=== PATIENT | male | born 1955 | race Caucasian/White ===

== ENCOUNTER → 2016-07-01 | Outpatient (CLI) | payer OTHER ==
[~2016-07-01] MED LIST: ACET-1256 PO; ASPI325T39 PO; ASPI81TA28 PO; CARV6.25 PO; DICL-201 PO; DLD2 PO; FLM4 PO; HYDC25 PO; MAGNESIUM HYDROXIDE PO; MILK OF MAGNESIA PO; NAPR1TAB9 PO; NTRGSL/4 UT; POTAPOW29 PO; POTASSIUM PO; SENNTAB23 PO; SERT25TA PO; SERT50TA PO; TRAM-10 PO
--- NOTE | 2016-07-01 13:44 | DIAGNOSTIC IMAGING REPORT ---
RIGHT SHOULDER MRI HISTORY: Right shoulder pain. TECHNIQUE: Multiplanar multisequence MRI of the right shoulder was performed without contrast. COMPARISON STUDY: None. FINDINGS: Motion artifact throughout the scan resulting in suboptimal evaluation. AC joint: Moderate to severe AC joint arthropathy. This is demonstrated by joint space narrowing and large marginal osteophytes. Is also trace fluid within the joint space likely result of the fluid within the subacromial/subdeltoid bursa. Rotator cuff: The subscapularis and teres minor tendons appear to be grossly intact. There are full-thickness tears involving the entire supraspinous and infraspinatus tendons which demonstrate retraction. The supraspinatus is retracted up to the level of the acromioclavicular joint. The infraspinatus is retracted up to 2.7 cm. The full-thickness tears result in fluid within the subacromial/subdeltoid bursa and mild superior subluxation of the humeral head in relation to the glenoid. There is also an interstitial component of the tear extending into the musculotendinous junction of the infraspinatus. There is edema within the infraspinatus muscle. There is severe fatty atrophy of supraspinatus muscle and moderate fatty atrophy of the infraspinatus muscle. Labrum: Diffusely abnormal signal and configuration throughout the labrum consistent with circumferential tear/maceration. Biceps tendon: Completely torn and retracted into the proximal bicipital groove. Bones: No acute fracture dislocation. Extensive subchondral cystic change and edema at the glenohumeral joint. There are also large osteophytes at the glenohumeral and acromioclavicular joints. Cartilage: Full-thickness cartilage loss at the glenohumeral joint consistent with severe osteoarthritis. Miscellaneous: Small joint effusion. There are few scattered small intra-articular bodies. IMPRESSION: 1. Complete full-thickness tears of the supraspinatus and infraspinatus tendons as described above with associated retraction and muscular atrophy. 2. Circumferential tear/maceration of the labrum. 3. The proximal long head of the biceps tendon is completely torn and retracted into the proximal bicipital groove. 4. Severe osteoarthritis at the glenohumeral and acromioclavicular joints. Electronically signed by: Noah Ochoa M.D. 07/01/2016 1:42 PM Dictated Date/Time: 07/01/2016 1:32 PM
== END | disposition home or self-care (01) ==
LOC: C.MRIBC 11:33
PROVIDERS: ATTEND Orthopaedic Surgery
DX: M75.121 Complete rotator cuff tear or rupture of right shoulder, not specified as traumatic (principal); M19.011 Primary osteoarthritis, right shoulder

== ENCOUNTER → 2016-07-27 | Outpatient (CLI) | payer OTHER | END | disposition home or self-care (01) | LOC: C.CTS 13:06 | PROVIDERS: ATTEND Orthopaedic Surgery | DX: M75.101 Unspecified rotator cuff tear or rupture of right shoulder, not specified as traumatic (principal); M19.011 Primary osteoarthritis, right shoulder ==

== ENCOUNTER 2016-08-28 05:24 | Inpatient (IN) | payer OTHER ==
[2016-07-27 14:12] VITALS: BMI 36.0
--- NOTE | 2016-07-27 14:53 | PAT Medication Instructions ---
Service Date Jul 27, 2016. Current Home Medication List Acetaminophen (Tylenol), 1,000 MG PO QAM Aspirin (Aspirin Ec), 325 MG PO QAM Carvedilol (Coreg), 6.25 MG PO BID Diclofenac (Voltaren), 75 MG PO BID Hydrochlorothiazide (Hctz *), 25 MG PO QPM Nitroglycerin (Nitrostat), 0.4 MG UT PRN Sertraline (Zoloft), 50 MG PO QPM Sertraline (Zoloft), 25 MG PO QAM Tamsulosin HCl (Tamsulosin HCl), 0.4 MG PO HS Tramadol (Ultram), 50-100 MG PO Q4HR [Milk Of Magnesia], 2 TAB PO QPM [Potassium], 2 TAB PO BID Medication Instructions For Your Scheduled Surgery - Continue as directed: Nitroglycerin (Nitrostat), 0.4 MG UT PRN - Hold the following medications 7 days prior to surgery per surgeon's instructions: Diclofenac (Voltaren), 75 MG PO BID - Hold the following medications the morning of surgery: [Potassium], 2 TAB PO BID - Take the following medications the morning of surgery with a sip of water OTHERWISE NOTHING TO EAT OR DRINK AFTER MIDNIGHT: Carvedilol (Coreg), 6.25 MG PO BID Aspirin (Aspirin Ec), 325 MG PO QAM (okay to continue per surgeon) Acetaminophen (Tylenol), 1,000 MG PO QAM ( may take if needed up to 4 hours prior to surgery) Tramadol (Ultram), 50-100 MG PO Q4HR Sertraline (Zoloft), 25 MG PO QAM - Take the following medications as scheduled the night before surgery: Carvedilol (Coreg), 6.25 MG PO BID Acetaminophen (Tylenol), 1,000 MG PO QAM Hydrochlorothiazide (Hctz *), 25 MG PO QPM Tramadol (Ultram), 50-100 MG PO Q4HR ( may take if needed up to 4 hours prior to surgery) [Potassium], 2 TAB PO BID Sertraline (Zoloft), 50 MG PO QPM Tamsulosin HCl (Tamsulosin HCl), 0.4 MG PO HS [Milk Of Magnesia], 2 TAB PO QPM If you have any questions please call us at [phone] or [phone] or [phone]
--- NOTE | 2016-07-27 15:14 | DIAGNOSTIC IMAGING REPORT ---
CHEST 2 VIEWS ROUTINE CLINICAL HISTORY: Preoperative chest COMPARISON STUDY: 10/17/2014 FINDINGS: The heart remains mildly enlarged. There is no failure. There is no focal pulmonary consolidation. There are no pleural effusions. There are postsurgical changes of a left humeral arthroplasty. There are surgical clips in the left axillary region. There are surgical clips within the left upper quadrant.[ There are minor right basilar atelectatic changes. There is stable aortic tortuosity/ectasia. IMPRESSION: Stable mild cardiomegaly. No active disease in the chest. Electronically signed by: Nilo Crowe M.D. 07/27/2016 3:13 PM Dictated Date/Time: 07/27/2016 3:12 PM
[2016-07-27 15:24] LABS: URINE APPEARANCE CLEAR (CLEAR); URINE BILIRUBIN NEG (NEG); URINE COLOR YELLOW; URINE NITRITE NEG (NEG); URINE PH 7.5 (4.5-7.5); URINE SPECIFIC GRAVITY 1.021 (1.000-1.030); UROBILINOGEN NEG (NEG)
[2016-07-27 15:26] LABS: MANUAL MICROSCOPIC REQUIRED? NO; REVIEW REQ? NO
[2016-07-27 15:28] LABS: PARTIAL THROMBOPLASTIN RATIO 1.1; PROTHROMBIN TIME (PATIENT) 10.2 SECONDS (9.0-12.0)
[2016-07-27 15:33] LABS: BUN/CREATININE RATIO 23.6 (10-20); CALCIUM 8.9 mg/dl (8.5-10.1); CREATININE 0.69 mg/dl (0.60-1.40); POTASSIUM 3.9 mmol/L (3.5-5.1)
[2016-07-27 19:27] LABS: BASO % 0.3 %; BASO ABS # 0.02 K/uL (0-0.2); COMPLETE YES; EOS % 2.5 %; HEMATOCRIT 42.4 % (42-52); IG% 0.4 %; LYMPH % 23.5 %; LYMPH ABS # 1.79 K/uL (1.2-3.4); MEAN CELL VOLUME 94.6 fL (80-100); MEAN CORPUSCULAR HEMOGLOBIN 31.5 pg (25-34); MEAN CORPUSCULAR HGB CONC 33.3 g/dl (32-36); MONO % 10.7 %; NEUT % 62.6 %; PLATELET COUNT 375 K/uL (130-400); RED BLOOD COUNT 4.48 M/uL (4.7-6.1); WHITE BLOOD COUNT 7.63 K/uL (4.8-10.8)
--- NOTE | 2016-08-27 10:40 | HISTORY & PHYSICAL EXAMINATION ---
DATE OF ADMISSION: 08/28/2016 CHIEF COMPLAINT: Rotator cuff arthropathy of the right shoulder. HISTORY OF PRESENT ILLNESS: Live is a pleasant 61-year-old male who I did a left total shoulder on about 2 years ago. He has done fairly well with that. He also has documented right shoulder arthritis. Unfortunately, while at work on June 03, he was lifting a heavy object and felt a sudden snap and pain in his shoulder. He got an MRI which actually showed a chronic retracted rotator cuff tear. Given the level of pain and loss of function he has in his shoulder, he has elected to proceed with reverse right shoulder arthroplasty. PAST MEDICAL HISTORY: Significant for hypertension, hyperlipidemia, sleep apnea with a BiPAP machine, angioplasty with a stent, osteoarthritis, kidney stones, enlarged prostate and melanoma. PAST SURGICAL HISTORY: Significant for left total shoulder arthroplasty 2 years ago, knee surgery, hip surgery, heart stents x3, cholecystectomy, melanoma and Faye fundoplication. ALLERGIES: PERCOCET, VICODIN, AND IV CONTRAST. MEDICATIONS: Include tramadol 50 mg as needed for pain, Coreg 6.25 mg twice a day, HCTZ 25 mg daily, aspirin 81 mg daily, Zoloft 50 mg daily, Tylenol 500 mg as needed for pain, tamsulosin at bedtime and potassium 99 mg 4 times a day. FAMILY HISTORY: Noncontributory. SOCIAL HISTORY: He denies any tobacco, alcohol or IV drug use. REVIEW OF SYSTEMS: He complains of right shoulder pain. All other pertinent review of systems are negative. PHYSICAL EXAMINATION: GENERAL: He is awake, alert and oriented x3. He is in no apparent distress. He is very pleasant. HEENT: Pupils equal, round and reactive to light. Extraocular motion intact. Oral mucosa is pink and moist. HEART: Regular rate per radial pulse. LUNGS: Anayeli symmetrically bilaterally with no audible breath sounds. ABDOMEN: Soft, nontender, nondistended. MUSCULOSKELETAL: On physical examination of the right shoulder, he has significant decrease in range of motion with about 30 degrees of forward elevation and 30 degrees of abduction. Passively, I have trouble even getting him through further range of motion. All of his pain is located anteriorly and down the length of the biceps tendon. IMAGING DATA: X-rays of the shoulder show advanced osteoarthritis with a type B2 glenoid. There is slight progression from the last x-rays. MRI of the shoulder shows advanced glenohumeral arthritis with a large chronic retracted rotator cuff tear. IMPRESSION: Rotator cuff arthropathy of the right shoulder. PLAN: We will proceed with a Biomet comprehensive reverse right total shoulder arthroplasty. Postoperatively, he will be placed in a sling and kept overnight for postoperative medical management.
[2016-08-28] VITALS (10 sets, daily range): BP systolic 94–144; BP diastolic 64–99; PULSE 83–105; TEMP 36.4–36.7; O2SAT 91–95; Ht 180.3 cm; Wt 119.6 kg
[~2016-08-28] VITALS: Ht 180.3 cm; Wt 119.6 kg
[~2016-08-28 05:24] MED LIST changes: -ASPI81TA28 PO; -DLD2 PO; -MAGNESIUM HYDROXIDE PO; -NAPR1TAB9 PO; -POTAPOW29 PO; -SENNTAB23 PO
[2016-08-28] MEDS ORDERED: ACETAMINOPHEN 500 MG TAB PO SCH (06:00)
[2016-08-28] MEDS ORDERED: LACTATED RINGER'S 1000ML IV SCH ×2 (06:00→15:45)
[2016-08-28] MEDS ORDERED: FAMOTIDINE 20 MG TAB PO SCH (06:00)
[2016-08-28] MEDS ORDERED: ROPIVACAINE 5MG/ML 30 ML 150 MG, BUPIVACAINE/EPINEPHR 0.5% MPF 30 ML, KETOROLAC TROMETH... INFIL SCH ×7 (06:00)
[2016-08-28] MEDS ORDERED: GABAPENTIN 300 MG CAP PO SCH (06:00)
[2016-08-28] MEDS ORDERED: CEFAZOLIN 2000 MG/60 ML D5W 60 ML IV SCH (06:00)
[2016-08-28] MEDS ORDERED: BUPIVACAINE/EPINEPHRINE 0.25% 1:200,000 30 ML VIAL ONE (06:22)
[2016-08-28] MEDS ORDERED: DEXAMETHASONE SOD INJ 4 MG/ML VIAL ONE ×2 (06:22→07:47)
--- NOTE | 2016-08-28 06:30 | History & Physical Bridge Note ---
H&P Re-Evaluation Bridge Note: I have examined the patient, reviewed the History & Physical and in the interval since the performance of the History & Physical I have noted the following changes of clinical significance: No changes noted
[2016-08-28] MEDS ORDERED: BACITRACIN 50000 UNIT VIAL ONE (06:45)
[2016-08-28] MEDS ORDERED: BUPIVACAINE/EPINEPHRINE 0.5% MPF 1:200,000 30 ML VIAL ONE (06:45)
[2016-08-28] MEDS ORDERED: GLYCOPYRROLATE INJ 0.2 MG/ML VIAL ONE (06:46)
[2016-08-28] MEDS ORDERED: FENTANYL CITRATE INJ 50 MCG/1 ML 2 ML VIAL ONE (06:46)
[2016-08-28] MEDS ORDERED: ROCURONIUM BROMIDE 10 MG/ML 5 ML VIAL ONE (06:46)
[2016-08-28] MEDS ORDERED: LIDOCAINE HCL 2% 2 ML VIAL (20MG/ML) ONE (06:46)
[2016-08-28] MEDS ORDERED: PROPOFOL IV EMULSION 10 MG/ML 20 ML VIAL IV ONE (06:46)
[2016-08-28] MEDS ORDERED: MIDAZOLAM HCL 1 MG/ML 2ML VIAL ONE (06:46)
[2016-08-28] MEDS ORDERED: NEOSTIGMINE METHYLSULFATE 5 MG/5 ML SYR ONE (06:46)
[2016-08-28] MEDS ORDERED: ONDANSETRON INJ 2 MG/ML 2 ML VIAL ONE (06:46)
[2016-08-28] MEDS ORDERED: ORTHO JOINT ANESTHETIC ONE (07:03)
[2016-08-28] MEDS ORDERED: ONDANSETRON INJ 2 MG/ML 2 ML VIAL IV PRN ×2 (07:45→09:30)
[2016-08-28] MEDS ORDERED: FENTANYL CITRATE INJ 50 MCG/1 ML 2 ML VIAL IV PRN (07:45)
[2016-08-28] MEDS ORDERED: PROMETHAZINE HCL INJ 6.25 MG in SODIUM CHLORIDE 0.9% 50ML 50 ML IV PRN (07:45)
[2016-08-28] MEDS ORDERED: ATROPINE SULFATE 0.1 MG/ML 5ML SYR IV PRN (07:45)
[2016-08-28] MEDS ORDERED: EpHEDrine SULFATE INJ 50 MG/ML AMP IV PRN (07:45)
[2016-08-28] MEDS ORDERED: EpHEDrine SULFATE 50MG/5ML SYR ONE (08:27)
[2016-08-28] MEDS ORDERED: PHENYLEPHRINE 100MCG/ML 5ML SYR ONE (08:27)
[2016-08-28] MEDS ORDERED: SUCCINYLCHOLINE 100MG/5ML SYR IV ONE (08:28)
--- NOTE | 2016-08-28 09:22 | [facility] Post Operative Brief Note ---
Immediate Operative Summary Operative Date Aug 28, 2016. Pre-Operative Diagnosis Rotator Cuff Arthropathy of the Right Shoulder Post-Operative Diagnosis Rotator Cuff Arthropathy of the Right Shoulder Procedure(s) Performed Right Reverse Total Shoulder Arthroplasty--Uncemented Surgeon Dr. Sim Contracting Support Specialist Surgeon(s) NÉSTOR Alejandro Estimated Blood Loss 350 ml Findings as above Specimens A. Portion of Right Humeral Head Complication(s) None Disposition Recovery Room / PACU
[2016-08-28] MEDS ORDERED: HYDROmorphone INJ 1 MG/ML SYR IV PRN (09:30)
[2016-08-28] MEDS ORDERED: NITROGLYCERIN 0.4 MG SL PER TAB CHARGE UT PRN (09:30)
[2016-08-28] MEDS ORDERED: METOCLOPRAMIDE HCL INJ 5 MG/ML 2 ML VIAL IV PRN (09:30)
[2016-08-28] MEDS ORDERED: BISACODYL 10 MG SUPP PR PRN (09:30)
[2016-08-28] MEDS ORDERED: NALOXONE HCL 0.4 MG/1 ML VIAL/CARP IV PRN (09:30)
[2016-08-28] MEDS ORDERED: MAGNESIUM HYDROXIDE SUSP 30 ML UDC PO PRN (09:30)
[2016-08-28] MEDS ORDERED: SOD PHOSPHATE/SOD BIPHOSPHATE ENEMA 132 ML BTL PR PRN (09:30)
[2016-08-28] MEDS ORDERED: HYDROmorphone HCL 2 MG TAB PO PRN (09:30)
--- NOTE | 2016-08-28 10:19 | DIAGNOSTIC IMAGING REPORT ---
RIGHT SHOULDER MIN 2 VIEWS ROUTINE CLINICAL HISTORY: Postoperative evaluation. COMPARISON: CT of the right shoulder July 27, 2016. FINDINGS: Alignment of the right shoulder arthroplasty is anatomic. There is no periprosthetic fracture or unexpected radiopaque foreign body. Surgical drain is in place. IMPRESSION: Expected findings following right shoulder arthroplasty. Electronically signed by: Vivek Layton M.D. 08/28/2016 10:18 AM Dictated Date/Time: 08/28/2016 10:16 AM
--- NOTE | 2016-08-28 10:59 | Anesthesiology Progress Note ---
Anesthesia Post Op Note Date & Time Aug 28, 2016 at 10:58 Vital Signs Pain Intensity: 0 Vital Signs Past 12 Hours Date Time Temp Pulse Resp B/P Pulse Ox O2 Delivery O2 Flow Rate FiO2 08/28/16 10:25 36.2 79 12 121/67 95 Nasal Cannula 4 08/28/16 10:15 65 13 121/73 94 Nasal Cannula 4 08/28/16 10:05 72 13 117/84 99 Mask 10 08/28/16 09:55 69 13 126/73 99 Mask 10 08/28/16 09:46 36.1 79 12 136/89 96 Mask 10 08/28/16 05:45 86 20 144/99 94 Room Air Notes Mental Status: alert / awake / arousable, participated in evaluation Pt Amnestic to Procedure: Yes Nausea / Vomiting: adequately controlled Pain: adequately controlled Airway Patency, RR, SpO2: stable & adequate BP & HR: stable & adequate Hydration State: stable & adequate Anesthetic Complications: no major complications apparent Block working well in pacu
--- NOTE | 2016-08-28 11:10 | OPERATIVE REPORT ---
DATE OF OPERATION: 08/28/2016 PREOPERATIVE DIAGNOSIS: Rotator cuff arthropathy of the right shoulder. POSTOPERATIVE DIAGNOSIS: Same. PROCEDURE: Reverse right total shoulder arthroplasty. SURGEON: Dr. Natan Sim. INVESTIGATIONS CHIEF: Kai Uriostegui PA-C, whose assistance was necessary for positioning the arm and helping with retraction. ANESTHESIA: General with a right interscalene nerve block. COMPLICATIONS: None. CONDITION: Stable to PACU. IMPLANTS USED: I used a Biomet comprehensive right reverse total shoulder arthroplasty with a size 16 mini stem, a 45-mm central screw, 3 peripheral locking screws, a 41-mm standard eccentric glenosphere, a standard humeral baseplate and a standard humeral bearing. No cement was used during the case. INDICATIONS: Live is a pleasant 61-year-old male who has been dealing with chronic right shoulder pain. He has had arthritis of his shoulder. He then injured his shoulder while working, sustained a large cuff tear and a traumatic biceps rupture. He elected to undergo a reverse right total shoulder arthroplasty. DESCRIPTION OF PROCEDURE: On 08/28/2016, he arrived at [facility] for the above procedure. He was seen in the preoperative holding area and the operative extremity was identified and signed. He was given a preoperative antibiotic and a right interscalene nerve block. He was taken back to the operating room, laid on the table in supine position and put under general anesthesia. He was then put into the beachchair position. The right shoulder was prepped and draped in sterile fashion. Time-out was done and the patient and operative extremity was properly identified. A deltopectoral incision was used. Dissection was taken down through the fascia and the anterior shoulder was exposed. The long head of the biceps tendon had already been traumatically tenotomized. The subscapularis was released from the lesser tuberosity and the humerus was exposed. There was a complete rupture of the supraspinatus and a half of the infraspinatus. Sequential reaming up to a size 16 reamer was done. Off the final reamer, a proximal humeral resection guide was placed and the proximal humerus was resected at 135 degrees of inclination and 20 degrees of retroversion. Osteophytes were then removed around the inferior humeral neck. The glenoid was then exposed. Time was spent doing a complete circumferential capsular and labral release. The Biomet signature guide was then snapped on to the anterior aspect of the glenoid. A guide pin was placed in the reverse shoulder arthroplasty hole. This set the baseplate at 10 degrees of inclination. The 25-mm mini base plate was then reamed. The mini base plate was then impacted into place. A 45-mm central screw was placed. I was able to get excellent purchase. Superior, inferior and anterior locking screws were then placed. A 41-mm eccentric glenosphere was then impacted into place. The proximal humerus was then exposed. Sequential broaching up to a size 16 broach was done. Off that broach, a standard humeral tray was placed. The shoulder was reduced, brought through a full range of motion and felt to be stable. The final size 16 pressfit mini stem was impacted into place and the humeral bearing was snapped onto the humeral baseplate and the ring lock mechanism was engaged. The humeral baseplate was then put onto the humeral stem and the shoulder was reduced, brought through a full range of motion and felt to be stable. The entire joint was then irrigated with 3 liters of normal saline solution with bacitracin. Surrounding soft tissues were injected with 100 mL of an orthopedic pain control cocktail. A final irrigation was done. The subscapularis was then tenodesed back to the lesser tuberosity with transosseous FiberWire sutures and [id number] sutures. A single lumen drain was placed. The skin was then closed with 2-0 Vicryl, a running 3-0 V-Loc suture and a Prineo dressing. He was then placed in a regular arm sling, extubated, transferred to a [facility] and taken to the postanesthesia care unit in stable condition. He tolerated the procedure well. I attest to the content of the Intraoperative Record and any orders documented therein. Any exceptio ns are noted below.
[2016-08-28] MEDS: D5W AND 1/2NSS + 20MEQ KCL 1,000 ML IV SCH ×2 (11:28→21:26)
[2016-08-28] MEDS: KETOROLAC TROMETHAMINE 30 MG/ML VIAL IV. SCH ×3 (11:31→23:59)
[2016-08-28] MEDS: ACETAMINOPHEN IV 1,000 MG in EMPTY BAG 0 ML IV SCH ×2 (13:17→21:27)
[2016-08-28] MEDS: TRAMADOL HCL 50 MG TAB PO SCH ×3 (13:17→23:58)
[2016-08-28] MEDS: CEFAZOLIN IV 2,000 MG in DEXTROSE 5% 50ML 50 ML IV SCH ×2 (14:17→22:29)
[2016-08-28] MEDS: DOCUSATE SODIUM 100 MG CAP PO SCH (20:41)
[2016-08-28] MEDS: CARVEDILOL 6.25 MG TAB PO SCH (20:42)
[2016-08-28] MEDS ORDERED: SERTRALINE HCL 50 MG TAB PO SCH (21:00)
[2016-08-28] MEDS ORDERED: HYDROCHLOROTHIAZIDE 25 MG TAB PO SCH (21:00)
[2016-08-28] MEDS ORDERED: TAMSULOSIN HCL 0.4 MG CAP PO SCH (21:00)
[2016-08-28] MEDS ORDERED: SENNA 8.6 MG TAB PO SCH (21:00)
[2016-08-29 03:45] VITALS: BP 129/92; PULSE 95; TEMP 36.5; O2SAT 92
[2016-08-29] MEDS: TRAMADOL HCL 50 MG TAB PO SCH (05:22)
[2016-08-29] MEDS: ACETAMINOPHEN IV 1,000 MG in EMPTY BAG 0 ML IV SCH (05:22)
[2016-08-29] MEDS: KETOROLAC TROMETHAMINE 30 MG/ML VIAL IV. SCH (05:22)
[2016-08-29 06:51] LABS: HEMATOCRIT 36.6 % (42-52); MEAN CELL VOLUME 93.4 fL (80-100); MEAN CORPUSCULAR HEMOGLOBIN 32.1 pg (25-34); MEAN CORPUSCULAR HGB CONC 34.4 g/dl (32-36); MEAN PLATELET VOLUME 10.4 fL (7.4-10.4); PLATELET COUNT 287 K/uL (130-400); RED BLOOD COUNT 3.92 M/uL (4.7-6.1); WHITE BLOOD COUNT 17.32 K/uL (4.8-10.8)
[2016-08-29 07:20] LABS: BUN/CREATININE RATIO 24.5 (10-20); CALCIUM 8.1 mg/dl (8.5-10.1); CREATININE 0.83 mg/dl (0.60-1.40); POTASSIUM 3.6 mmol/L (3.5-5.1)
[2016-08-29] MEDS: D5W AND 1/2NSS + 20MEQ KCL 1,000 ML IV SCH (07:28)
[2016-08-29 07:45] VITALS: BP 112/74; PULSE 91; TEMP 36.5; O2SAT 94
[2016-08-29] MEDS ORDERED: HYDR2TAB3 PO (08:51)
--- NOTE | 2016-08-29 08:52 | Discharge Instructions ---
Discharge Instructions Date of Service Aug 29, 2016. Admission Reason for Admission: Right Shoulder Full Thickness Rtc Tear, Osteoarthr Discharge Discharge Diagnosis / Problem: Right Reverse Total Shoulder Discharge Goals Goal(s): Decrease discomfort, Improve function Activity Recommendations Activity Limitations: as noted below Shower/Bathe: may shower/bathe in 3 days . Instructions / Follow-Up Instructions / Follow-Up Activity and Therapy Recommendations: * Wear your sling for 3 weeks, unless otherwise instructed. You may remove your sling to shower and to dress, but otherwise, you should be in your sling at all times, including while sleeping * The shoulder replacement is very stable and you can use your hand while in the sling * Physical Therapy should start about 3-5 days from your day of surgery. Therapy will last about 8-12 weeks * You were shown a series of exercises in the hospital. Do these exercises daily including the exercises you were shown in physical therapy. Medications: * Narcotic You will likely be sent home from the hospital with a prescription for the narcotic pain medication that worked best throughout your stay. * Other medications may be prescribed for specific circumstances. If you have any questions, please call the office at . * Resume previous home medications unless otherwise instructed Dressing Care: You will likely have a Prineo dressing covering your incision. This looks like a glued on clear mesh dressing. Do not remove this dressing until you follow- up in my office in 2-3 weeks. Its pretty hard to peel it off. You may leave the Prineo dressing uncovered or cover it if it is draining a little bit. No further dressing care is required Showering: You may shower 3 days from the day of surgery. Leave the Prineo dressing intact and let the soapy shower water run over it. Do not scrub or soak the dressing or the incision. Things To Watch For: * Drainage from the incision site that occurs more than one week after your surgery. * Increased redness at the incision site. * Fever above 102 degrees Fahrenheit. * Unusual chest pain or shortness of breath. * Call [facility] at with any of the above problems Follow-Up Visit: Follow-up with Dr. Sim 2-3 weeks after your day of surgery. An appointment was probably scheduled when you signed-up for surgery in the office. If you have any questions call Office Instructions: More detailed instructions as well as Frequently Asked Questions were provided in a folder by our office when you signed-up for surgery. Please review these instructions when you get home. If you have any further questions or concerns, please feel free to call the office at [phone] Current Hospital Diet Patient's current hospital diet: Regular Diet Discharge Diet Recommended Diet: Regular Diet Procedures Procedures Performed: Right Reverse Total Shoulder Arthroplasty--Uncemented Pending Studies Studies pending at discharge: no Medical Emergencies . Who to Call and When: Medical Emergencies: If at any time you feel your situation is an emergency, please call 911 immediately. . Non-Emergent Contact Non-Emergency issues call your: Surgeon Call Non-Emergent contact if: wound has increased drainage, wound has increased redness . "Provider Documentation" section prepared by Natan Sim. VTE Core Measure Inpt VTE Proph given/why not?: Treatment not indicated
[2016-08-29] MEDS ORDERED: SERTRALINE HCL 50 MG TAB PO SCH (09:00)
[2016-08-29] MEDS ORDERED: ASPIRIN 325 MG ECTAB PO SCH (09:00)
[2016-08-29] MEDS ORDERED: PANTOprazole SOD 40 MG TAB PO SCH (09:00)
[2016-08-29] MEDS: CARVEDILOL 6.25 MG TAB PO SCH (09:04)
[2016-08-29] MEDS: DOCUSATE SODIUM 100 MG CAP PO SCH (09:04)
[2016-08-29 10:42] VITALS: BP 112/74; PULSE 91; TEMP 36.5; O2SAT 94
--- NOTE | 2016-08-29 18:01 | PROGRESS NOTE ---
DATE: 08/29/2016 CHIEF COMPLAINT: Status post right reverse total shoulder arthroplasty postop day #1. PROGRESS: Live was seen and examined at bedside today. Overall, he is doing very well. He was sitting up for breakfast. He said he had no pain in his right shoulder. He had no acute events overnight. He is happy with his progress and has no complaints. PHYSICAL EXAMINATION: RIGHT SHOULDER: The dressing is clean and dry and the drain is to suction. He is wearing his sling as instructed. His radial, median and ulnar nerves were checked and intact. His axillary nerve was not checked yet. LABORATORY DATA: He has an H\T\H today of 12.6 and 36.6. His glucose is 141. His vital signs are all stable and he is voiding on his own after the Dickson was removed. X-ray postop right shoulder showed the prosthesis to be in an anatomic alignment without any evidence of loosening or fracture. ASSESSMENT: Status post right reverse total shoulder arthroplasty postop day #1. PLAN: At this point, he is doing very well. He will be seen by physical therapy today to do hand, wrist and elbow exercises. The nursing staff will change the dressing and pull the drain and we will discharge him to home. BRADEN
--- NOTE | 2016-08-30 01:44 | DISCHARGE SUMMARY ---
DISCHARGE DIAGNOSIS: Rotator cuff arthropathy of the right shoulder. PROCEDURE: Right reverse total shoulder arthroplasty on 08/28/[address] Natan Sim. DISCHARGE INSTRUCTIONS: 1. Dilaudid 2 mg every four hours as needed for pain. 2. Tramadol 50 mg every four hours as needed for pain. 3. Tylenol 1000 mg daily. 4. Aspirin 325 mg daily. 5. Coreg 6.25 mg twice a day. 6. Voltaren 75 mg twice a day. 7. HCTZ 25 mg at night. 8. Nitroglycerin 0.4 mg as needed. 9. Zoloft 50 mg at night and 25 mg in the morning. 10. Tamsulosin 0.4 mg at night. 11. Right arm sling for three weeks. 12. Follow up with Dr. Sim in two weeks. 13. Call the office of Dr. Sim with any questions or concerns. HOSPITAL COURSE: Live is a 61-year-old male, who presented to my office with chronic shoulder pain. MRI and clinical examination were diagnostic for rotator cuff arthropathy of the right shoulder. After failing conservative treatment, he elected to undergo a reverse shoulder arthroplasty. On 08/28/2016, he arrived at [facility] and underwent a reverse right shoulder arthroplasty without complications. He had a general anesthetic and a right interscalene nerve block. Postoperatively, he was discharged to the general orthopedic floor. His hospital course was uneventful. On postop day #1, his H\T\H were stable at 12.6 and 36.6. He was not having any pain in his shoulder and the nursing staff changed the dressing and pulled the drain and he was subsequently discharged to home with the above instructions. BRADEN
[2017-05-03] MEDS ORDERED: HYDR25TA4 PO (09:00)
[2017-05-03] MEDS ORDERED: CRAN500C2 PO (09:00)
== END 2016-08-29 11:50 | disposition home or self-care (01) | DRG 483 ==
LOC: ENRESERVTM → ENRESERVDT → C.ACU 05:24 → C.3E 09:32
PROVIDERS: ADMIT Orthopaedic Surgery; ATTEND Orthopaedic Surgery
PROC: 0RRJ00Z Replacement of Right Shoulder Joint with Reverse Ball and Socket Synthetic Substitute, Open Approach (ICD-10-PCS; principal; 2016-08-28 07:00)
DX: M12.811 Other specific arthropathies, not elsewhere classified, right shoulder (principal); I10 Essential (primary) hypertension; E78.5 Hyperlipidemia, unspecified; G47.30 Sleep apnea, unspecified; Z95.5 Presence of coronary angioplasty implant and graft; N40.0 Benign prostatic hyperplasia without lower urinary tract symptoms; Z96.612 Presence of left artificial shoulder joint

== ENCOUNTER 2017-05-18 08:41 | Day surgery (SDC) | payer BC, OTHER ==
[2017-05-03 09:02] VITALS: BMI 37.0
--- NOTE | 2017-05-03 09:38 | PAT Medication Instructions ---
Service Date May 03, 2017. Current Home Medication List Acetaminophen (Tylenol), 500 MG PO PRN Aspirin (Aspirin Ec), 325 MG PO QAM Carvedilol (Coreg), 6.25 MG PO BID Cranberry (Vaccinium Macrocarp (Cranberry), 500 MG PO QAM Diclofenac (Voltaren), 75 MG PO BID Hydrochlorothiazide (Hctz), 25 MG PO QPM Nitroglycerin (Nitrostat), 0.4 MG UT PRN Sertraline (Zoloft), 50 MG PO QPM Tamsulosin HCl (Tamsulosin HCl), 0.4 MG PO HS Tramadol (Ultram), 50-100 MG PO Q4HR [Milk Of Magnesia], 2 TAB PO QPM [Potassium], 2 TAB PO BID Medication Instructions For Your Scheduled Surgery - Check with surgeon/gravel hauler for instructions: Aspirin (Aspirin Ec), 325 MG PO QAM - Check with surgeon for instructions: Diclofenac (Voltaren), 75 MG PO BID - Hold the following medications 2 weeks prior to surgery: Cranberry (Vaccinium Macrocarp (Cranberry), 500 MG PO QAM - Hold the following medications the morning of surgery: [Potassium], 2 TAB PO BID - Take the following medications the morning of surgery with a sip of water: Acetaminophen (Tylenol), 500 MG PO PRN (okay to take up to 4 hours prior to surgery if needed) Tramadol (Ultram), 50-100 MG PO Q4HR (okay to take up to 4 hours prior to surgery if needed) Nitroglycerin (Nitrostat), 0.4 MG UT PRN (if needed) Carvedilol (Coreg), 6.25 MG PO BID - Take the following medications as scheduled the night before surgery: Acetaminophen (Tylenol), 500 MG PO PRN (if needed) [Milk Of Magnesia], 2 TAB PO QPM [Potassium], 2 TAB PO BID Tramadol (Ultram), 50-100 MG PO Q4HR Tamsulosin HCl (Tamsulosin HCl), 0.4 MG PO HS Sertraline (Zoloft), 50 MG PO QPM Nitroglycerin (Nitrostat), 0.4 MG UT PRN (if needed) Hydrochlorothiazide (Hctz), 25 MG PO QPM Carvedilol (Coreg), 6.25 MG PO BID If you have any questions please call us at [phone] or [phone] or [phone]
[2017-05-03 10:19] LABS: BASO % 0.4 %; BASO ABS # 0.03 K/uL (0-0.2); COMPLETE YES; EOS % 4.2 %; HEMATOCRIT 41.4 % (42-52); IG% 0.1 %; LYMPH % 21.3 %; LYMPH ABS # 1.71 K/uL (1.2-3.4); MEAN CELL VOLUME 94.7 fL (80-100); MEAN CORPUSCULAR HEMOGLOBIN 31.4 pg (25-34); MEAN CORPUSCULAR HGB CONC 33.1 g/dl (32-36); MEAN PLATELET VOLUME 10.2 fL (7.4-10.4); MONO % 8.1 %; NEUT % 65.9 %; PLATELET COUNT 272 K/uL (130-400); RED BLOOD COUNT 4.37 M/uL (4.7-6.1); WHITE BLOOD COUNT 8.03 K/uL (4.8-10.8)
[2017-05-03 10:23] LABS: URINE APPEARANCE CLEAR (CLEAR); URINE BILIRUBIN NEG (NEG); URINE COLOR YELLOW; URINE EPITHELIAL CELL AUTO 0-5 /lpf (0-5); URINE NITRITE NEG (NEG); URINE SPECIFIC GRAVITY 1.019 (1.000-1.030); UROBILINOGEN NEG (NEG)
[2017-05-03 10:24] LABS: MANUAL MICROSCOPIC REQUIRED? NO; REVIEW REQ? NO
[2017-05-03 11:08] LABS: BUN/CREATININE RATIO 20.2 (10-20); CALCIUM 8.7 mg/dl (8.5-10.1); CREATININE 0.74 mg/dl (0.60-1.40); POTASSIUM 4.1 mmol/L (3.5-5.1)
[~2017-05-18] VITALS: Ht 180.3 cm; Wt 121.6 kg
[~2017-05-18 08:41] MED LIST changes: +CIPROFLOXACIN / D5W 400 MG IV SCH; +CRAN500C2 PO; -HYDC25 PO; +HYDR25TA4 PO; +LACTATED RINGER'S 1000ML 1,000 ML IV SCH; +SCOPOLAMINE 1.5 MG TDSY TD SCH; -SERT25TA PO
[2017-05-18 09:24] VITALS: BP 171/98; PULSE 72; TEMP 37.1; O2SAT 95; Ht 180.3 cm; Wt 121.6 kg
[2017-05-18] MEDS ORDERED: ATROPINE SULFATE 0.1 MG/ML 5ML SYR IV PRN (09:30)
[2017-05-18] MEDS ORDERED: EpHEDrine SULFATE INJ 50 MG/ML AMP IV PRN (09:30)
[2017-05-18] MEDS ORDERED: HYDROmorphone INJ 1 MG/ML SYR IV PRN (09:30)
[2017-05-18] MEDS ORDERED: METOCLOPRAMIDE HCL INJ 5 MG/ML 2 ML VIAL IV PRN (09:30)
[2017-05-18] MEDS ORDERED: ONDANSETRON INJ 2 MG/ML 2 ML VIAL IV PRN (09:30)
[2017-05-18] MEDS ORDERED: PROMETHAZINE HCL INJ 12.5 MG in SODIUM CHLORIDE 0.9% 50ML 50 ML IV PRN (09:30)
[2017-05-18] MEDS ORDERED: PROPOFOL IV EMULSION 10 MG/ML 20 ML VIAL IV ONE (10:59)
[2017-05-18] MEDS ORDERED: MIDAZOLAM HCL 1 MG/ML 2ML VIAL ONE (10:59)
[2017-05-18] MEDS ORDERED: LIDOCAINE HCL 2% 2 ML VIAL (20MG/ML) ONE (10:59)
[2017-05-18] MEDS ORDERED: KETAMINE HCL INJ 50 MG/ML 10 ML VIAL ONE (11:00)
[2017-05-18] MEDS ORDERED: FENTANYL CITRATE INJ 50 MCG/1 ML 2 ML VIAL ONE (11:00)
[2017-05-18] MEDS ORDERED: CIPR-255 PO (11:17)
[2017-05-18] MEDS ORDERED: PHEN95TA14 PO (11:17)
--- NOTE | 2017-05-18 11:18 | Discharge Instructions ---
Discharge Instructions Date of Service May 18, 2017. Admission Reason for Admission: Urethral Stricture, Benign Prostatic Hypertrophy Discharge Discharge Diagnosis / Problem: urethral stricture; BPH Discharge Goals Goal(s): Decrease discomfort, Improve function, Increase independence, Improve disease control Activity Recommendations Activity Limitations: resume your previous activity Lifting Limitations: none Exercise/Sports Limitations: none May Resume Sexual Activity: when tolerated Shower/Bathe: no limitations Driving or Machine Use: resume 1 day after discharge . Instructions / Follow-Up Instructions / Follow-Up Please keep your previously scheduled appointment for catheter removal. Current Hospital Diet Patient's current hospital diet: Discharge Diet Recommended Diet: Regular Diet Pending Studies Studies pending at discharge: no Medical Emergencies . Who to Call and When: Medical Emergencies: If at any time you feel your situation is an emergency, please call 911 immediately. . Non-Emergent Contact Non-Emergency issues call your: Urologist Call Non-Emergent contact if: you have a fever, temperature is above 101.5, your pain is not controlled, your pain is worsening . . "Provider Documentation" section prepared by Agapito Johnston. . VTE Core Measure Inpt VTE Proph given/why not?: Treatment not indicated
[2017-05-18] MEDS ORDERED: SODIUM CHLORIDE 0.9% 1000ML 1,000 ML IV SCH (12:20)
[2017-05-18] MEDS ORDERED: PHENAZOPYRIDINE HCL 200 MG TAB PO STA (12:30)
[2017-05-18] MEDS ORDERED: TRAMADOL/ACETAMINOPHEN 37.5/325MG TAB PO PRN (12:30)
[2017-05-18] MEDS: FENTANYL CITRATE INJ 50 MCG/1 ML 2 ML VIAL IV PRN ×4 (12:33→13:12)
--- NOTE | 2017-05-18 12:37 | [facility] Operative Report ---
Operative Report Operative Date May 18, 2017. Pre-Operative Diagnosis Benign Prostatic Hyperplasia; Urethral Stricture Post-Operative Diagnosis Benign Prostatic Hyperplasia; Urethral Stricture Procedure(s) Performed Cystoscopy, Direct Visual Internal Urethrotomy, Urolift Surgeon Dr. Izabel Melendez Organizational Consultant Surgeon(s) none Estimated Blood Loss 0mL Findings Bulbar urethral stricture - short length, quite dense; lateral lobe hypertrophy from the prostate Specimens none per surgeon Drains 20 Greenlandic Dickson Anesthesia sedation Complication(s) None Disposition Recovery Room / PACU (stable) Indications Lower urinary tract symptoms; required self calibration Description of Procedure Patient was identified in the preoperative holding area, appropriate informed consents were reviewed and completed and the patient was transported to the operating suite. Upon arrival he received appropriate preoperative antibiotics in the form of ciprofloxacin. Adequate sedation was achieved, and he was placed in dorsal lithotomy position where he was sterilely prepped and draped in standard fashion. I began the case by passing a cystoscope with 12 lens. Inspection of the urethra revealed a short length, dense bulbar urethral stricture. The sphincter was visualized through the lumen of stricture. I was unable to bypass of stricture with the scope. I exchanged the visual obturator for a direct vision urethrotome. Utilizing a bleed I made an anterior incision at 12: 00 opening the stricture. There remained dense posterior aspect of stricture and I cut this attempting to flatten the posterior aspect of the urethra. Scope easily bypassed this stricture after this cutting. I then exchanged the urethrotome for a cystoscope with 0 lens in preparation for the uro-lift procedure. The prostate was inspected, and he was noted to have lateral lobe hypertrophy. Full inspection of the bladder was carried out. There were no tumors, stones, or other abnormalities. I then exchanged visual obturator for the first uro-lift device. The first suture was deployed on the right side of the prostate approximately 1 cm in from the bladder neck. A mirror image suture was then deployed on the left. A third suture was placed adjacent to the verumontanum on the right. A fourth suture was placed in a mirror image of this location on the left. There was excellent hemostasis. I reinspected the bladder and prostate and confirmed an excellent anterior channel. A 20 Greenlandic Dickson catheter was inserted without difficulty and the case was concluded. I attest to the content of the Intraoperative Record and any orders documented therein. Any exceptions are noted below.
[2017-05-18] MEDS: LABETALOL HCL IV 5 MG/ML 20ML IV PRN ×2 (12:38→12:53)
--- NOTE | 2017-05-18 13:21 | Anesthesiology Progress Note ---
Anesthesia Post Op Note Date & Time May 18, 2017 at 13:20 Vital Signs Pain Intensity: 7.0 Vital Signs Past 12 Hours Date Time Temp Pulse Resp B/P (MAP) Pulse Ox O2 Delivery O2 Flow Rate FiO2 05/18/17 09:24 37.1 72 18 171/98 (122) 95 Room Air Notes Mental Status: alert / awake / arousable, participated in evaluation Pt Amnestic to Procedure: Yes Nausea / Vomiting: adequately controlled Pain: adequately controlled Airway Patency, RR, SpO2: stable & adequate BP & HR: stable & adequate Hydration State: stable & adequate Anesthetic Complications: no major complications apparent Pt doing well. VSS. BP better after labetalol.
[2017-05-18 14:09] VITALS: BP 162/91; PULSE 66; TEMP 36.4; O2SAT 94
[2017-05-18 14:15] VITALS: BP 162/84; PULSE 66; O2SAT 95
[2017-05-18 14:45] VITALS: BP 165/88; PULSE 70; TEMP 36.4; O2SAT 92
[2017-05-18] MEDS ORDERED: CHECK SCOPOLAMINE PATCH PLACEMENT SCH (16:00)
== END 2017-05-18 15:15 | disposition home or self-care (01) ==
LOC: C.ACU 08:41
PROVIDERS: ATTEND Urology
DX: N40.1 Benign prostatic hyperplasia with lower urinary tract symptoms (principal); N13.8 Other obstructive and reflux uropathy; N35.9 Urethral stricture, unspecified; N52.9 Male erectile dysfunction, unspecified; I10 Essential (primary) hypertension; E78.00 Pure hypercholesterolemia, unspecified; M19.90 Unspecified osteoarthritis, unspecified site; Z79.82 Long term (current) use of aspirin; Z79.899 Other long term (current) drug therapy; I25.10 Atherosclerotic heart disease of native coronary artery without angina pectoris; G47.33 Obstructive sleep apnea (adult) (pediatric); Z95.5 Presence of coronary angioplasty implant and graft; K21.9 Gastro-esophageal reflux disease without esophagitis; K44.9 Diaphragmatic hernia without obstruction or gangrene; F41.9 Anxiety disorder, unspecified; F32.9 Major depressive disorder, single episode, unspecified; E66.9 Obesity, unspecified; Z68.37 Body mass index [BMI] 37.0-37.9, adult

== ENCOUNTER → 2017-08-26 | Outpatient (CLI) | payer BC ==
[~2017-08-26] MED LIST changes: +CIPR-255 PO; -CIPROFLOXACIN / D5W 400 MG IV SCH; -LACTATED RINGER'S 1000ML 1,000 ML IV SCH; +PHEN95TA14 PO; -SCOPOLAMINE 1.5 MG TDSY TD SCH
== END | disposition home or self-care (01) ==
LOC: C.LABSPEC 10:35
PROVIDERS: ATTEND Urology
DX: N40.1 Benign prostatic hyperplasia with lower urinary tract symptoms (principal)

== ENCOUNTER 2017-10-05 18:29 | Emergency (ER) | payer OTHER, BC ==
[~2017-10-05] VITALS: Ht 180.3 cm; Wt 109.0 kg
[2017-10-05 18:35] VITALS: TEMP 36.9; Ht 180.3 cm; Wt 109.0 kg
[2017-10-05] MEDS ORDERED: TRAMADOL HCL 50 MG TAB PO STA (18:57)
[2017-10-05] MEDS ORDERED: PRAS10TA5 PO (19:08)
[2017-10-05] MEDS ORDERED: ISOS-11 PO (19:08)
[2017-10-05] MEDS ORDERED: ZLF/50 PO (19:08)
[2017-10-05] MEDS ORDERED: PSYL48.59 PO (19:08)
[2017-10-05] MEDS ORDERED: POLY335019 PO (19:08)
[2017-10-05] MEDS ORDERED: CRG625 (19:08)
[2017-10-05] MEDS ORDERED: RANO1000 PO (19:08)
[2017-10-05] MEDS ORDERED: VLT/75 PO (19:08)
[2017-10-05] MEDS ORDERED: ULT/50 (19:08)
[2017-10-05] MEDS ORDERED: EZET10TA66 PO (19:08)
[2017-10-05] MEDS ORDERED: HYDR25TA5 (19:08)
[2017-10-05] MEDS ORDERED: ACET-1256 PO (19:08)
[2017-10-05] MEDS ORDERED: LSN25 PO (19:08)
[2017-10-05] MEDS ORDERED: ASPI81TA28 PO (19:08)
[2017-10-05] MEDS ORDERED: PHEN95TA14 PO (19:16)
[2017-10-05] MEDS ORDERED: DOCU100C31 PO (19:16)
--- NOTE | 2017-10-05 19:31 | DIAGNOSTIC IMAGING REPORT ---
L KNEE 3 VIEWS CLINICAL HISTORY: Left knee pain COMPARISON: None. DISCUSSION: There are postsurgical changes of a total knee arthroplasty and patellar resurfacing. There is mild patellar fragmentation likely chronic. There appears to be separation of the patella from the resurfacing prosthesis. There is a small joint effusion. No acute fractures are visualized. IMPRESSION: 1. No acute fractures 2. Postsurgical changes of a total knee arthroplasty 3. Apparent separation of the patella from the resurfacing prosthesis. Electronically signed by: Nilo Crowe M.D. 10/05/2017 7:30 PM Dictated Date/Time: 10/05/2017 7:28 PM
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
[2017-10-05 20:14] VITALS: BP 138/76; PULSE 88; O2SAT 97
== END 2017-10-05 20:15 | disposition home or self-care (01) ==
LOC: C.EDB 18:30 → C.EDD 20:15
DX: S89.92XA Unspecified injury of left lower leg, initial encounter (principal); X50.0XXA Overexertion from strenuous movement or load, initial encounter; Z96.652 Presence of left artificial knee joint; Z88.8 Allergy status to other drugs, medicaments and biological substances; Z91.041 Radiographic dye allergy status; E11.9 Type 2 diabetes mellitus without complications; I10 Essential (primary) hypertension

== ENCOUNTER 2022-05-26 05:50 | Observation (INO) ==
--- NOTE | 2022-05-11 15:25 | PAT Medication Instructions ---
Medication Instructions Date of Service May 11, 2022 Home Medications carvedilol 6.25 mg tablet (Coreg) 6.25 mg PO BID lisinopril 2.5 mg tablet 2.5 mg PO HS ranolazine 1,000 mg tablet,extended release,12 hr (Ranexa) 1,000 mg PO BID sertraline 50 mg tablet 50 mg PO HS gabapentin 100 mg capsule 100 mg PO HS isosorbide dinitrate 30 mg tablet 20 mg PO BID clopidogrel 75 mg tablet (Plavix) 75 mg PO QAM ergocalciferol (vitamin D2) 1,250 mcg (50,000 unit) capsule (Vitamin D2) 1,250 mcg PO WK fenofibrate nanocrystallized 145 mg tablet 145 mg PO HS furosemide 20 mg tablet (Lasix) 20 mg PO QAM hydrochlorothiazide 25 mg tablet 25 mg PO BID ibuprofen 200 mg capsule 400 mg PO Q6H PRN isosorbide dinitrate 20 mg tablet 20 mg PO BID magnesium hydroxide 311 mg chewable tablet 311 mg PO UD nitroglycerin 0.4 mg sublingual tablet 0.4 mg sublingual UD PRN potassium 99 mg tablet 99 mg PO BID tramadol 50 mg tablet 50 mg PO TID PRN vitamin B complex 1 tab PO QAM Continue as directed nitroglycerin 0.4 mg sublingual tablet 0.4 mg sublingual UD PRN(if needed) ASK your surgeon for instructions ibuprofen 200 mg capsule 400 mg PO Q6H PRN ASK your prescriber and surgeon clopidogrel 75 mg tablet (Plavix) 75 mg PO QAM-check with prescriber if acceptable to hold 7 days for neuraxial anesthesia STOP taking 48 hours before surgery fenofibrate nanocrystallized 145 mg tablet 145 mg PO HS DO NOT take the morning of surgery ergocalciferol (vitamin D2) 1,250 mcg (50,000 unit) capsule (Vitamin D2) 1,250 mcg PO WK furosemide 20 mg tablet (Lasix) 20 mg PO QAM hydrochlorothiazide 25 mg tablet 25 mg PO BID magnesium hydroxide 311 mg chewable tablet 311 mg PO UD potassium 99 mg tablet 99 mg PO BID vitamin B complex 1 tab PO QAM Take morning of surgery With a small sip of water, OTHERWISE NOTHING TO EAT OR DRINK AFTER MIDNIGHT: carvedilol 6.25 mg tablet (Coreg) 6.25 mg PO BID ranolazine 1,000 mg tablet,extended release,12 hr (Ranexa) 1,000 mg PO BID isosorbide dinitrate 30 mg tablet 20 mg PO BID isosorbide dinitrate 20 mg tablet 20 mg PO BID tramadol 50 mg tablet 50 mg PO TID PRN(if needed) Take evening before surgery carvedilol 6.25 mg tablet (Coreg) 6.25 mg PO BID lisinopril 2.5 mg tablet 2.5 mg PO HS ranolazine 1,000 mg tablet,extended release,12 hr (Ranexa) 1,000 mg PO BID sertraline 50 mg tablet 50 mg PO HS gabapentin 100 mg capsule 100 mg PO HS isosorbide dinitrate 30 mg tablet 20 mg PO BID hydrochlorothiazide 25 mg tablet 25 mg PO BID isosorbide dinitrate 20 mg tablet 20 mg PO BID potassium 99 mg tablet 99 mg PO BID tramadol 50 mg tablet 50 mg PO TID PRN(if needed) Insulin Dependent Diabetic Patients * Test your blood sugar the morning of surgery * If Blood Sugar is GREATER THAN 150, take HALF of your regular dose of: * If Blood Sugar is LESS THAN 150, DO NOT TAKE ANY: Other Notes If you have any questions please call us at [phone] or [phone] or [phone] or [phone]
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
--- NOTE | 2022-05-25 19:20 | Progress Notes ---
The patient is a 67-year-old gentleman who has had about a 3-1/2 to 4 month history of progressively increasing right hip pain and discomfort. X-rays show progressive hip arthritis. He did have an MRI , which shows a subchondral fracture of the articular surface with extension down into the femoral ne ck and intertrochanteric region. In light of these findings of the subchondral fracture with collaps e, I think his surgery is more of medical necessity to prevent further collapse and progression of th is fracture. He has been quite debilitated by this, which puts him at additional risk for thrombosis along with other issues with his multiple medical problems. In light of these findings, I think the surgery is medically necessary in bed and cannot be put off for an extended duration or done in an e lective manner. We are going to proceed with a total hip replacement. He will hopefully have just o ne night stay and plan to discharge to home with home health. Job ID: [id number]
[2022-05-26] MEDS ORDERED: Scopolamine 1 MG TDSY TD SCH (06:00)
[2022-05-26] MEDS ORDERED: TRANEXAMIC ACID 1,000 MG **IV Pre-op IV SCH (06:00)
[2022-05-26] MEDS ORDERED: LR 60ML/HR IV SCH (06:00)
[2022-05-26] MEDS ORDERED: LR 500ML BOLUS, THEN 15ML/HR IV SCH (06:00)
[2022-05-26] MEDS ORDERED: ceFAZolin 2000MG 2,000 MG/15 ML SYR IV SCH (06:00)
[2022-05-26] MEDS ORDERED: FAMOTIDINE 20 MG TAB PO SCH (06:00)
[2022-05-26] MEDS ORDERED: CeleBREX 200 MG CAP PO SCH (06:00)
[2022-05-26] MEDS ORDERED: METOCLOPRAMIDE HCL 10 MG TABLET PO SCH (06:00)
[2022-05-26] MEDS ORDERED: ACETAMINOPHEN 500 MG TAB PO SCH (06:00)
[2022-05-26] MEDS ORDERED: BUPIVACAINE 0.5 % 5 MG/1 ML PF 10ML VIAL ONE (06:20)
--- NOTE | 2022-05-26 06:57 | History & Physical Bridge Note ---
Date of Service May 26, 2022 History & Physical Bridge Note I have examined the patient, reviewed the History & Physical and in the interval since the performance of the History & Physical I have noted the following changes of clinical significance: no changes noted
[2022-05-26] MEDS ORDERED: fentaNYL citrate 100 MCG/2 ML VIAL ONE (07:47)
[2022-05-26] MEDS ORDERED: MIDAZOLAM HCL 1 MG/ML 2ML VIAL ONE (07:47)
[2022-05-26] MEDS ORDERED: MoRPHine SULFATE PF 1 MG/ML 10 ML AMP/VIAL ONE (07:50)
[2022-05-26] MEDS ORDERED: BUPIVACAINE/EPINEPHRINE 0.5% MPF 1:200,000 30 ML VIAL ONE (08:37)
[2022-05-26] MEDS ORDERED: ONDANSETRON INJ 2 MG/ML 2 ML VIAL ONE (08:39)
[2022-05-26] MEDS ORDERED: PROPOFOL IV EMULSION 10 MG/ML 20 ML VIAL IV ONE ×2 (08:39→10:34)
[2022-05-26] MEDS ORDERED: KETAMINE 50 MG/5 ML SYRINGE ONE (09:12)
--- NOTE | 2022-05-26 11:12 | Operative Report ---
PG Post Operative Report Pre & Post Diagnosis Operation Date: 05/26/22 08:50 Pre-Op Diagnosis: Right Hip Advanced Degenerative Joint Disease Post-Op Diagnosis: Right Hip Advanced Degenerative Joint Disease I identified the patient and participated in the time-out.: Yes Procedure Operation Date: 05/26/22 08:50 Actual Procedures p Right Total Hip Arthroplasty(Right) - Ayush Keyes MD Surgeon Ayush Keyes MD Economics Instructor Gino Echeverria PA-C Estimated Blood Loss 200 Findings Consistent with Post-Op Diagnosis Operative findings revealed a right hip arthritis. He did have a very soft friable femoral head. A very stiff hip and a very stiff knee below. Moderate soft tissue envelope. Fluids 1800 cc Specimens Right femoral head sent for pathology Drains None Anesthesia Type Spinal MAC Complications none Disposition Accompanied Patient To Recovery: No Indications Patient is a 67-year-old gentleman with multiple medical issues as well as orthopedic issues over the past 10 to 15 years. He does have history of open femur fracture on the side and advanced arthritis and a very stiff knee below but no pain with this. Over the past 4 months he has had several falls and developed increased pain discomfort his right hip to the point that he had to use 2 canes to get around. X-rays show some moderate to advanced hip arthritis. He did have an MRI which showed a subchondral femoral head insufficiency fracture. He is got underlying anemia as well. Patient failed conservative management elective super total hip arthroplasty. He was having trouble even getting around with a 2 canes. He denied any knee pain at all. Description of Procedure Operative implants consist of: 1 Biomet G7 size 56 mm acetabular shell. 2. 6.5 cancellous acetabular screws 1 of 35 mm length 1 to 40 mm length. 3. [place] home health aide caregiver. 4. Highly cross-linked polyethylene liner with a 56 mm outer diam and 36 mm inner diam with a rizvi placed inferior and posterior. 5. DePuy Corail size 13 short neck 135 degree angle femoral stem. 6. +5/36 mm ceramic articular ball. The patient was taken the operating, identified, placed on the operating table supine position protectors were properly padded. IV antibiotics tried by anesthesia team. A spinal anesthetic and been implemented holding area. Dickson catheter was placed in sterile fashion. The patient then placed in the left lateral cubitus position. Axillary roll was placed. Stulberg hip positioner was used for positioning. Right hip and leg were then prepped and draped in usual sterile fashion. A posterior lateral puncture of the right hip was then performed through a curvilinear incision centered over the greater trochanter. Sharp dissection was carried through subcutaneous is down low the IT band gluteal fascia the IT band gluteal fascia incised longitudinally in line with skin incision. The underl judith greater bursa was excised. The piriformis and external rotators along with the posterior hip joint capsule were then released from the posterior aspect of the hip as a single layer. I attempted to internally rotate the hip and dislocated hip but could not due to due to the very stiff knee and the stiff hip. I did cut the femoral neck in situ and remove the femoral head. The head was crumbled upon taking out with a tenaculum. We did send this for pathology. The femur was then cut slightly shorter and then retracted anteriorly. Attention drawn the acetabulum. The acetabulum was excised. Pulvinar fat was excised. Sequential reaming the acetabular was then performed begin with a size 45 and progressing up to 55. A 56 mm reamer was then used and a 56 mm cup was placed in about 40 degrees lateral opening and 20 degrees of anteversion. It was fixed with two 6.5 cancellous acetabular screws. Some small osteophytes removed anterior and posterior. Attention drawn to the femur. Proximal femur was entered with a [employer] cutter followed by canal finder. Then broached begin the size 8 and progressing up to 13. Got good fit at 13. I then trialed the hip and that the hip was just too tight even with a short neck. We then remove the implant and cut the neck about 5 mm shorter. I then we broached up to the 13. We got good fit. It was very stable. I then trialed the hip w ith a short neck. With a +5 articular ball was stable and he had good hip extension. We elect to place these implants. I did elect to place a rizvi inferior and posterior to maximize his stability as it was difficult to assess due to his stiff knee. We elect to place these implants. All trial implants were removed. [place] home health aide caregiver was placed but highly cross-linked polyethylene liner with a rizvi placed inferior and posterior was placed. A size 13 short neck 135 degree angle femoral stem was impacted in position. A +5/36 mm ceramic articular ball was placed. Hip was located once again found to be stable. Attention drawn toward closing. Nupathe wounds irrigated cosigns pulsatile lavage solution. We did inject locally with 60 cc of half percent Marcaine with epinephrine. The posterior capsule and external rotators were repaired through drill holes in the posterior trochanter as a single layer with #2 Tycron suture. The IT band gluteal fascia then closed in 1 PDS suture in a running fashion for subcutaneous tissue then closed with 2 layers of deep layer #1 Vicryl suture and subcutaneous tissues with 2-0 Dexon suture in a buried interrupted fashion. Skin was closed skin jaswant. Leg was then cleaned and dried a sterile dressing was Xeroform, 4 x 4's, sterile ABD pad, foam tape was applied. The patient then transferred to the recovery room in stable condition. The patient tolerated the procedure well and there were no complications. Gino Echeverria, my physician patient assistant, was present for the entire procedure. His assistance was required for proper patient positioning, prepping and draping, surgical exposure, retraction, perform the technical details of the operation, placement implants, closure of the wound and placement of the sterile bandage. I attest to the content of the Intraoperative Record and any orders documented therein. Any exceptions are noted below.
[2022-05-26] MEDS ORDERED: ATROPINE SULFATE 0.1 MG/ML 10ML SYR IV PRN (11:39)
[2022-05-26] MEDS ORDERED: ePHEDrine sulfate 50 MG/ML AMP IV PRN ×2 (11:39→11:40)
[2022-05-26] MEDS ORDERED: diphenhydrAMINE 50 MG/ML VIAL IV PRN (11:40)
[2022-05-26] MEDS ORDERED: LACTATED RINGER'S 500 ML IV PRN (11:40)
[2022-05-26] MEDS ORDERED: NALOXONE HCL 0.08 MG in SYRINGE 1.8 ML IV PRN (11:40)
[2022-05-26] MEDS ORDERED: NALBUPHINE HCL INJ 10 MG/ML AMP IV PRN (11:40)
[2022-05-26] MEDS ORDERED: NALOXONE HCL 0.4 MG/1 ML VIAL/CARP IV PRN ×2 (11:40→11:56)
[2022-05-26] MEDS ORDERED: NALOXONE HCL 1 MG in SODIUM CHLORIDE 0.9% 1000ML 1,000 ML IV PRN (11:40)
[2022-05-26] MEDS ORDERED: PROMETHAZINE HCL 6.25 MG in SODIUM CHLORIDE 0.9% 50 ML IV PRN (11:40)
[2022-05-26] MEDS ORDERED: MoRPHine SULFATE 2 MG/ML CARP IV PRN (11:40)
[2022-05-26] MEDS ORDERED: MEPERIDINE HCL 25 MG/ML CARP/VIAL IV PRN (11:40)
[2022-05-26] MEDS ORDERED: HYDROmorphone INJ 0.5 MG/0.5 ML SYR IV PRN (11:40)
[2022-05-26] MEDS ORDERED: MoRPHine SULFATE PF 1 MG/ML 10 ML AMP/VIAL INT SPINAL ONE (11:40)
[2022-05-26] MEDS ORDERED: ONDANSETRON INJ 2 MG/ML 2 ML VIAL IV PRN ×2 (11:40→11:56)
--- NOTE | 2022-05-26 11:41 | Anesthesiology Progress Note ---
Date of Service May 26, 2022 Anesthesia Post Procedure Vital Signs Vital Signs: Temp Pulse Pulse Resp BP Pulse Ox O2 Del Method 05/26/22 11:30 36.5 C 66 18 139/88 98 Nasal Cannula 05/26/22 11:20 61 18 120/86 98 Oxymask 05/26/22 11:10 62 18 134/75 100 Oxymask 05/26/22 11:04 36.6 C 65 18 131/80 94 Oxymask 05/26/22 06:29 36.7 C 75 20 114/81 96 Room Air O2 Flow Rate 05/26/22 11:30 2 05/26/22 11:20 5 05/26/22 11:10 5 05/26/22 11:04 5 05/26/22 06:29 Pain Intensity Right Hip: Pain Intensity: 4 Transfer of Care Handoff Completed per policy Notes Mental Status: alert / awake / arousable Patient Amnestic to Procedure: Yes Nausea / Vomiting: adequately controlled Pain: adequately controlled Airway Patency, RR, SpO2: stable & adequate BP & HR: stable & adequate Hydration State: stable & adequate Neuraxial Anesthesia: was administered and sensory block is resolving Anesthetic Complications: no major complications apparent and Pt Satisfied with anesthetic care
--- NOTE | 2022-05-26 11:42 | XRay Report ---
XR hip 1V RT w pelvis CLINICAL HISTORY: Postoperative evaluation. COMPARISON: Right hip radiographs May 04, 2022. FINDINGS: Alignment of the total right hip arthroplasty is anatomic. There is no periprosthetic frac ture or unexpected radiopaque foreign body. There are skin jaswant. Left hip arthroplasty is noted. O ld right pubic ring fractures are incidentally noted. IMPRESSION: Expected findings following total right hip arthroplasty. ACT 112: Negative or not required by law. Electronically signed by: Vivek Layton M.D. 05/26/2022 11:41 AM
[2022-05-26] MEDS ORDERED: NO NARCOTICS OR SEDATIVES SCH (11:45)
[2022-05-26] MEDS ORDERED: DC INTRASPINAL MORPHINE SCH (11:45)
[2022-05-26] MEDS ORDERED: SODIUM CHLORIDE 0.9% 1000ML 1,000 ML IV SCH (11:45)
[2022-05-26] MEDS ORDERED: KETOROLAC TROMETHAMINE 15 MG/ML VIAL IV PRN (11:48)
[2022-05-26] MEDS ORDERED: ERGOCALCIFEROL 50,000 UNITS 1250 MCG CAP PO SCH (11:56)
[2022-05-26] MEDS ORDERED: MAGNESIUM HYDROXIDE SUSP 30 ML UDC PO PRN (11:56)
[2022-05-26] MEDS ORDERED: ALUMINUM/MAGNESIUM SUSP 30 ML UDC PO PRN (11:56)
[2022-05-26] MEDS ORDERED: MAGNESIUM HYDROXIDE PO SCH (11:56)
[2022-05-26] MEDS ORDERED: METOCLOPRAMIDE HCL INJ 5 MG/ML 2 ML VIAL IV PRN (11:56)
[2022-05-26] MEDS ORDERED: HYDROmorphone INJ 1 MG/ML SYRINGE IV PRN (11:56)
[2022-05-26] MEDS ORDERED: NITROGLYCERIN SL 0.4 MG/TAB TAB SL PRN (11:56)
[2022-05-26] MEDS ORDERED: HYDROmorphone HCL 2 MG TAB PO PRN (11:56)
[2022-05-26] MEDS ORDERED: bisacodyL 10 MG SUPP PR PRN (11:56)
[2022-05-26] MEDS: SODIUM CHLORIDE 0.9% 1000ML 1,000 ML IV SCH ×2 (12:30→22:02)
[2022-05-26] MEDS: KETOROLAC TROMETHAMINE 15 MG/ML VIAL IV SCH ×3 (12:45→23:46)
[2022-05-26] MEDS ORDERED: ISOSORBIDE DINITRATE 20 MG TAB PO SCH (12:45)
[2022-05-26] MEDS: ACETAMINOPHEN 500 MG TAB PO SCH ×2 (14:10→22:01)
[2022-05-26] MEDS: Scopolamine CHECK PATCH PLACEMENT SCH ×2 (15:25→23:48)
[2022-05-26] MEDS: ASCORBIC ACID 500 MG TAB PO SCH (17:12)
[2022-05-26] MEDS ORDERED: TRANEXAMIC ACID / 0.7% NACL 1,000 MG/100 ML BAG IV SCH (17:15)
[2022-05-26] MEDS ORDERED: Nursing to Pharmacy Communication SCH (17:15)
[2022-05-26] MEDS: ceFAZolin 2000MG 2,000 MG/15 ML SYR IV SCH (17:20)
--- NOTE | 2022-05-26 18:15 | Progress Notes ---
DATE OF SERVICE: 05/26/2022 SUBJECTIVE: A 67-year-old gentleman postoperative from a right uncemented total hip replacement. He is doing pretty well. He says his pain is controlled. No chest pain or shortness of breath. Not f eeling dizzy or lightheaded. OBJECTIVE: VITAL SIGNS: Temperature 36.7. Vital signs are stable. PHYSICAL EXAMINATION: GENERAL: Shows a pleasant middle-aged male. He is sitting up in bed, looks comfortable. LUNGS: Clear to auscultation. HEART: Regular rate and rhythm. ABDOMEN: Soft, nontender, nondistended. EXTREMITIES: Grossly neurovascularly intact except as follows: Examination of the right hip and leg reveals the dressing to be clean, dry and intact. Leg lengths are equal. He can dorsiflex and plan tarflex his foot appropriately. He is neurologically intact. X-RAYS: X-rays of the right hip from recovery room are reviewed. It shows a right uncemented hip re placement. Components looked to be in good position. No signs of problems. Implants look to be wel l positioned. ASSESSMENT: A 67-year-old male with multiple medical comorbidities, postoperative from right hip rep lacement, doing well. His hip is located. He is neurologically intact. PLAN: 1. DVT prophylaxis includes thigh-high TEDs, SCDs and back on his Plavix starting 24 hours postop. 2. PT/OT. He can weight bear as tolerated. Right total hip protocol. 3. Pain control, doing okay with current pain regimen. 4. Disposition: Plan is that he is hoping to go to a rehab. I think he is planning to going to [facility] closer to his home. We will work on that starting tomorrow. Job ID: [id number]
[2022-05-26] MEDS: carvediloL 6.25 MG TAB PO SCH (19:50)
[2022-05-26] MEDS: DOCUSATE SODIUM/SENNA 50/8.6MG TAB PO SCH (19:51)
[2022-05-26] MEDS: DOCUSATE SODIUM 100 MG CAP PO SCH (19:52)
[2022-05-26] MEDS: FENOFIBRATE NANOCRYSTALLIZED 145 MG TABLET PO SCH (19:52)
[2022-05-26] MEDS: GABAPENTIN 100 MG CAP PO SCH (19:53)
[2022-05-26] MEDS: lisinopril 2.5 MG TAB PO SCH (19:54)
[2022-05-26] MEDS: SENNA 8.6 MG TAB PO SCH (19:54)
[2022-05-26] MEDS: RANOLAZINE 500 MG ER TAB PO SCH (19:54)
[2022-05-26] MEDS: SERTRALINE HCL 50 MG TABLET PO SCH (19:55)
[2022-05-26] MEDS: ISOSORBIDE MONONITRATE 20 MG TAB PO SCH (20:06)
[2022-05-26] MEDS ORDERED: NON-FORMULARY MEDICATION (Potassium 99 mg Tablet) PO SCH (21:00)
[2022-05-27] MEDS: ceFAZolin 2000MG 2,000 MG/15 ML SYR IV SCH (00:59)
[2022-05-27] MEDS: KETOROLAC TROMETHAMINE 15 MG/ML VIAL IV SCH ×4 (04:55→23:21)
[2022-05-27] MEDS ORDERED: METOCLOPRAMIDE HCL INJ 5 MG/ML 2 ML VIAL IV PRN (05:41)
[2022-05-27] MEDS ORDERED: HYDROmorphone HCL 2 MG TAB PO PRN (05:41)
[2022-05-27] MEDS ORDERED: ONDANSETRON INJ 2 MG/ML 2 ML VIAL IV PRN (05:41)
[2022-05-27] MEDS ORDERED: HYDROmorphone INJ 1 MG/ML SYRINGE IV PRN (05:41)
[2022-05-27] MEDS: ACETAMINOPHEN 500 MG TAB PO SCH ×3 (05:59→22:10)
[2022-05-27] MEDS: RANOLAZINE 500 MG ER TAB PO SCH ×2 (07:46→22:09)
[2022-05-27] MEDS: DOCUSATE SODIUM 100 MG CAP PO SCH ×2 (07:47→22:07)
[2022-05-27] MEDS: DOCUSATE SODIUM/SENNA 50/8.6MG TAB PO SCH ×2 (07:47→22:07)
[2022-05-27] MEDS: carvediloL 6.25 MG TAB PO SCH ×2 (07:47→22:06)
[2022-05-27] MEDS: MULTIVITAMIN TAB PO SCH (07:47)
[2022-05-27] MEDS: ASCORBIC ACID 500 MG TAB PO SCH ×2 (07:47→17:11)
[2022-05-27] MEDS: FUROSEMIDE 20 MG TAB PO SCH (07:47)
[2022-05-27] MEDS: ISOSORBIDE MONONITRATE 20 MG TAB PO SCH ×2 (07:47→22:09)
[2022-05-27] MEDS: hydroCHLOROthiazide 25 MG TAB PO SCH (07:47)
[2022-05-27] MEDS: TAMSULOSIN HCL 0.4 MG CAP PO SCH (07:48)
[2022-05-27] MEDS: VITAMIN B COMPLEX TAB PO SCH (07:48)
[2022-05-27] MEDS: Scopolamine CHECK PATCH PLACEMENT SCH ×3 (07:49→23:21)
[2022-05-27] MEDS ORDERED: dexAMETHasone 10 MG in SYRINGE 0 ML IV SCH (08:00)
[2022-05-27 08:11] LABS: Basophils # (auto) 0.03 K/uL (0-0.2); Basophils % (auto) 0.3 %; Eosinophils # (auto) 0.11 K/uL (0-0.50); Eosinophils % (auto) 1.2 %; Hematocrit (blood only) 34.9 % (40.1-51.0); Hemoglobin 11.4 g/dl (14.0-18.0); Immature Granulocytes # (auto) 0.03 K/uL (0.00-0.02); Immature Granulocytes % (auto) 0.3 %; Lymphocytes # (auto) 0.94 K/uL (1.2-3.4); Lymphocytes % (auto) 10.6 %; Mean Corpuscular Hemoglobin 31.8 pg (25.0-34.0); Mean Corpuscular Hgb Conc 32.7 g/dL (32.0-36.0); Mean Corpuscular Volume 97.2 fL (80.0-100.0); Mean Platelet Volume 10.1 fL (9.4-12.4); Monocytes % (auto) 10.2 %; Neutrophils # (auto) 6.83 K/uL (1.4-6.5); Neutrophils % (auto) 77.4 %; Platelet Count 232 K/uL (130-400); RDW Coefficient of Variation 12.4 % (11.5-14.5); RDW Standard Deviation 44.7 fL (36.4-46.3); Red Blood Count 3.59 M/uL (4.63-6.08); White Blood Count 8.84 K/ul (4.8-10.8)
[2022-05-27 09:02] LABS: Calcium 8.3 mg/dl (8.5-10.1); Creatinine Clr Calc Pharmacy 98.7 ml/min; Est GFR (African American) 103.5 ml/min; Est GFR (Non-African American) 89.3 ml/min; Potassium 4.1 mmol/L (3.5-5.1)
[2022-05-27] MEDS: CLOPIDOGREL BISULFATE 75 MG TAB PO SCH (11:03)
--- NOTE | 2022-05-27 11:27 | Progress Notes ---
SUBJECTIVE: A 67-year-old gentleman, postoperative day 1 from a right hip replacement. He is doing pretty well. Some moderate hip pain. Pain medicines seems to be working pretty well. No fevers. No chest pain or shortness of breath. Not feeling dizzy or lightheaded. OBJECTIVE: VITAL SIGNS: Temperature is 36.9. Vital signs are stable. GENERAL: Shows a pleasant middle-aged male. He is sitting up in bedside chair, looks comfortable. EXTREMITIES: Examination of the right hip reveals the leg lengths to be pretty equal. His dressing is clean, dry and intact. Thigh is soft and supple. He is neurologically intact. LABORATORY DATA: Hemoglobin 11.4. Hematocrit 34.9. Electrolytes are stable. ASSESSMENT: A 69-year-old gentleman postoperative day 1 from a right hip replacement, doing well. bAbe pearson has got a very arthritic knee below. He is doing pretty well. Pain is controlled. Hip is located . He is neurologically intact. PLAN: 1. DVT prophylaxis includes thigh-high TEDs, SCDs and back on his Plavix starting 24 hours postop. 2. PT/OT, weightbear as tolerated. Right total hip protocol. 3. Pain control, doing okay with current pain regimen. 4. Disposition. He was hoping to go to rehab, but feels like he has been denied. He is planning no w to go home with home health. He would like to stay another day and do a bit more therapy. We will try and get him home tomorrow after therapy. Job ID: [id number]
[2022-05-27] MEDS: FENOFIBRATE NANOCRYSTALLIZED 145 MG TABLET PO SCH (22:08)
[2022-05-27] MEDS: GABAPENTIN 100 MG CAP PO SCH (22:08)
[2022-05-27] MEDS: lisinopril 2.5 MG TAB PO SCH (22:09)
[2022-05-27] MEDS: SENNA 8.6 MG TAB PO SCH (22:09)
[2022-05-27] MEDS: SERTRALINE HCL 50 MG TABLET PO SCH (22:10)
[2022-05-28] MEDS: KETOROLAC TROMETHAMINE 15 MG/ML VIAL IV SCH (06:23)
[2022-05-28] MEDS: ACETAMINOPHEN 500 MG TAB PO SCH (06:25)
--- NOTE | 2022-05-28 07:51 | Progress Notes ---
DATE OF SERVICE: 05/28/2022 SUBJECTIVE: This is a 67-year-old gentleman, postoperative day 2 from a right hip replacement. He is doing prett y well. Pain is improving. Therapy went pretty well. No chest pain. No shortness of breath, hoping to go home. OBJECTIVE: VITAL SIGNS: Temperature 36.8. Vital signs are stable. GENERAL: Shows a pleasant middle-aged male. He is sitting up in bedside chair, looks comfortable. EXTREMITIES: Examination of the right hip reveals the incision to be clean, dry and intact. No drai nage. Thigh is soft and supple. Hip is located. He is neurologically intact. ASSESSMENT: A 67-year-old gentleman postoperative day 2 from a right hip replacement, doing pretty well. Pain is controlled. Hip is located. He is neurologically intact. PLAN: 1. DVT prophylaxis includes thigh-high TEDs, SCDs and back on his Plavix. 2. PT, OT, weightbear as tolerated. Right total hip protocol. 3. Pain control, doing okay with current pain regimen. 4. Disposition: Plan to discharge to home with some home health likely later today if he does okay in therapy. Job ID: [id number]
[2022-05-28] MEDS: VITAMIN B COMPLEX TAB PO SCH (08:44)
[2022-05-28] MEDS: FUROSEMIDE 20 MG TAB PO SCH (08:44)
[2022-05-28] MEDS: hydroCHLOROthiazide 25 MG TAB PO SCH (08:44)
[2022-05-28] MEDS: carvediloL 6.25 MG TAB PO SCH (08:45)
[2022-05-28] MEDS: ASCORBIC ACID 500 MG TAB PO SCH (08:45)
[2022-05-28] MEDS: RANOLAZINE 500 MG ER TAB PO SCH (08:45)
[2022-05-28] MEDS: Scopolamine CHECK PATCH PLACEMENT SCH (08:45)
[2022-05-28] MEDS: MULTIVITAMIN TAB PO SCH (08:45)
[2022-05-28] MEDS: DOCUSATE SODIUM/SENNA 50/8.6MG TAB PO SCH (08:45)
[2022-05-28] MEDS: CLOPIDOGREL BISULFATE 75 MG TAB PO SCH (08:45)
[2022-05-28] MEDS: TAMSULOSIN HCL 0.4 MG CAP PO SCH (08:45)
[2022-05-28] MEDS: ISOSORBIDE MONONITRATE 20 MG TAB PO SCH (08:45)
[2022-05-28] MEDS: DOCUSATE SODIUM 100 MG CAP PO SCH (08:45)
--- NOTE | 2022-05-31 07:57 | Discharge Summary ---
Date of Service May 31, 2022 Discharge Data Procedures Performed Operation Date: 05/26/22 08:50 Actual Procedures p Right Total Hip Arthroplasty(Right) - Ayush Keyes MD Hospital Course (1) Status post total replacement of right hip: This is a 67 year old patient admitted on 05/26/22 and underwent total hip arthroplasty. He tolerated the procedure well and there were no complications. Transferred to the PACU post op and later to the orthopedic floor for further care. He was given ancef for antibiotic prophylaxis. He was also given ELI stockings, SCDs, and plavix for DVT prophylaxis. Hemoglobin, hematocrit, and vital signs were monitored during his hospital stay and remained stable. Did not require any blood transfusions. There were no complications during his hospital stay. By post op day #2 the patient was tolerating a regular diet, pain was reasonably controlled with oral pain medicine, and he was participating in physical therapy. On post op day #2 the patient was discharged home and set up with home health care. He was given printed discharge instructions including prescriptions for extra strength tylenol, ketorolac, cefadroxil, zofran, senokot, flomax, and hydromorphone. Continue physical therapy, weight bearing as tolerated. Continue ELI stockings. Continue hip precautionis. Follow up approximately 2 weeks post op or sooner if there are problems or concerns. Coding Level of Care Code None Diagnoses Status post total replacement of right hip Z96.641
== END 2022-05-28 12:47 | disposition home health service (06) ==
LOC: ASU 05:50 → 3E 05:50